=== PATIENT | male | born 1975 | race Caucasian/White ===

== ENCOUNTER 2020-11-09 10:58 | Outpatient (RCR) | payer BC, SELFPAY ==
[2015-11-12 13:17] VITALS: BMI 29.6
== END 2020-12-14 23:59 ==
LOC: IMMUN 10:58
PROVIDERS: PCP Family Medicine; Referring Provider Family Medicine; Visit Provider Family Medicine
DX: Z23 Encounter for immunization (principal)
CPT/HCPCS: 0001A; 0002A; 91300